=== PATIENT | male | born 1985 | race Caucasian/White ===

== ENCOUNTER 2020-04-09 10:17 | Emergency (ER) | payer MEDICAID, SELFPAY ==
[2020-04-09 10:17] VITALS: BP 127/85; PULSE 104; RESP 18; TEMP 36.3; O2SAT 100; BMI 23.7
--- NOTE | 2020-04-09 10:25 | ED.VIS.GEN ---
History of Present Illness Chief Complaint: Sore Throat Informant: Patient Narrative: 34-year-old male with no significant past medical history presents with concern for sore throat. States that he was diagnosed with strep approximately 1 day ago. Patient is concerned because he has continued pain in his throat as well as his ears. Denies any fever, chills, neck pain, vision change. Patient has been taking Aleve at home. Past Medical History - Allergies and Home Meds Allergies/Adverse Reactions: Allergies No Known Allergies Allergy (Verified 04/09/20 10:17) Primary Care Physician: NOT,DEFINED [Primary Care Provider] - Prior records reviewed: Yes Past Medical History: None Surgical History: no surgical history Lives: Alone Alcohol: None Drugs: None Review of Systems General: Denies: Chills, Fever, Sweats Eyes: Denies: Visual changes - bilaterally, Diplopia ENT: Reports: Sore throat. Denies: Rhinorrhea Cardiovascular: Denies: Chest pain, Palpitations Respiratory: Denies: Dyspnea, Cough, Dyspnea on exertion Gastrointestinal: Denies: Abdominal pain, Nausea, Vomiting, Diarrhea, Melena, Hematochezia Genitourinary: Denies: Dysuria, Hematuria, Frequency Musculoskeletal: Denies: Back pain, Extremity Pain Skin: Denies: Rash, Wounds Neurological: Denies: Headache, Weakness, Numbness Physical Exam Vital Signs/Narrative: Vital Signs Temp Pulse Resp BP Pulse Ox 04/09/20 10:17 97.4 F L 104 H 18 127/85 H 100 General: Well nourished, Well developed, No Acute Distress Head: Normocephalic, Atraumatic Eyes: Perrl, EOMI ENT: Moist mucous membranes, No rhinorrhea, - - Bilateral pharnygeal edma with exudate. Neck: Supple, Nontender Cardiovascular: Regular rate, Regular rhythm, No murmurs Respiratory: No distress, CTA bilaterally, Chest nontender Abdomen: Soft, Nontender, Nondistended, Normal bowel sounds Back: Nontender, Normal Inspection Extremities: Nontender, No edema Skin: Normal color, No rash Neurological: Alert, Oriented x3, Cranial nerves II-XII grossly intact, Normal Strength, Normal Sensation Psychological: Normal affect, Normal Mood Diagnostic/Tx/Re-eval - Medical Decision Making Appears well nontoxic. Tearful on exam. Equal bilateral edema. Phonating normally and tolerating secretions. Patient is currently on amoxicillin. Will be given intramuscular Toradol and asked to continue with Aleve. Asked to return for new or worsening symptoms. Discharged home in stable condition. Impression: Streptococcal pharyngitis ED Disposition - Plan for ED Patient: Disposition: Home or Assisted Living Instructions: ED Pharyngitis Strep Confirmed Referrals: Arash Winter DO [NON CLINICAL AFFILIATE] -
[2020-04-09] MEDS: Ketorolac 15 MG/ML Vial IM (10:31)
== END 2020-04-09 10:56 | disposition home or self-care (01) ==
LOC: ED 10:47
PROVIDERS: Emergency Provider Emergency Medicine
DX: J02.0 Streptococcal pharyngitis (principal)
CPT/HCPCS: 96372; 99283

== ENCOUNTER 2023-08-21 18:19 | Emergency (ER) | payer MEDICAID, SELFPAY ==
[2023-08-21 18:20] VITALS: BP 128/76; PULSE 99; RESP 20; TEMP 36.6; O2SAT 99; BMI 23.2
--- NOTE | 2023-08-21 18:43 | EX.ED.DYSGE1 ---
HPI <YADIRA Cifuentes - Last Filed: 08/21/23 20:22> History of Present Illness Chief Complaint: Constipation Narrative Narrative: Patient states he last used meth on August 15 now he is staying in a snf house and detoxing. States whenever he stops using it he gets constipated. He had a bowel movement on 08/15 and then today sat on the toilet for over an hour and only had a few small pellets come out. He feels like stool stuck in his rectum. He has abdominal bloating and discomfort. No vomiting. No history of obstruction or abdominal surgeries. PFSH <YADIRA Cifuentes - Last Filed: 08/21/23 20:22> [facility] Home Medications Amoxicillin 04/09/20 [History Last Taken Unknown] naproxen sodium 220 mg capsule 220 mg PO BID PRN PRN Pain 1-10 Or Fever 04/09/20 [History Last Taken Unknown] peg 3350-electrolytes 236 gram-22.74 gram-6.74 gram-5.86 gram solution (Golytely) 240 ml PO Q10M PRN #4,000 mL 08/21/23 [Rx Last Taken Unknown] Allergy/AdvReac Type Severity Reaction Status Date / Time No Known Allergies Allergy Verified 08/21/23 18:20 Social History Smoking Status: Current every day smoker tobacco type: cigarettes ROS <YADIRA Cifuentes - Last Filed: 08/21/23 20:22> ROS ED ROS Narrative Constitutional: Negative for fever, chills, malaise. GI: Positive for constipation. Negative for abdominal pain, nausea, vomiting. : Negative for dysuria. EXAM <YADIRA Cifuentes - Last Filed: 08/21/23 20:22> Physical Exam Narrative Exam Narrative: CONST: Patient sitting in no acute distress. EYES: Normal inspection. NECK: Normal inspection. RESP: No respiratory distress, CTAB. CVS: Regular rate and rhythm, no murmur, no gallop. ABD: Soft and nontender, no guarding or rebound, nondistended. Normal bowel sounds. CLIFFORD: Enlarged external hemorrhoids with no bleeding or thrombosis. Hard brown pellet like stool in the rectal vault. SKIN: Color normal, no rash, warm, dry, intact. EXTREMITIES: Normal appearance, no pedal edema. NEURO: Alert and answering questions appropriately. PSYCH: Normal affect. Const Vital Signs: 08/21/23 18:20 Temperature 97.8 F Temperature Source Temporal Pulse Rate 99 Respiratory Rate 20 H Blood Pressure 128/76 H Blood Pressure Mean 93 Pulse Ox 99 Oxygen Delivery Method Room Air <Dr. Joseluis Guillaume MD - Last Filed: 08/21/23 18:50> Physical Exam Const Vital Signs: 08/21/23 18:20 Temperature 97.8 F Temperature Source Temporal Pulse Rate 99 Respiratory Rate 20 H Blood Pressure 128/76 H Blood Pressure Mean 93 Pulse Ox 99 Oxygen Delivery Method Room Air MDM <YADIRA Cifuentes - Last Filed: 08/21/23 20:22> [facility] Narrative Medical decision making narrative: Patient has had 5 days of constipation. He passed a few hard pellets today but feels like stool stuck in the rectum. He appears well and nontoxic. Vital signs stable. Abdomen is soft, nontender, nondistended. There is hard stool in the rectal vault and external hemorrhoids from straining. Removed about 4 small of pellets of stool but there is still a lot left in the upper rectum that he cannot reach. KUB shows constipation with no obstructive pattern. I ordered a mineral oil enema and he had a small bowel movement. I prescribed GoLytely and recommended he start in the morning. I discussed starting a bowel regimen after using this and return precautions. He was discharged in stable condition. Differential: Constipation, obstruction I have personally performed a face to face assessment of the patient and have reviewed the TRACI Note. I performed a substantive portion of the visit including all aspects of the following. My pelayo findings include: History is 37-year-old male recently stopped smoking and is trying to stop using methamphetamines. When he is done this before in the past he gets constipated. Last normal bowel movement was about 5 days ago. Currently he is having very hard small bouts of stool. Denies any nausea or vomiting. Exam is [well-appearing 37-year-old male. Vital signs stable afebrile. HEENT exam unremarkable. Neck nontender no lymphadenopathy. Lungs clear to auscultation bilaterally. Heart regular rhythm rate about 95 no murmur. Chest wall and ribs nontender. Abdomen soft nondistended normal bowel sounds no peritoneal signs. Moving all 4 extremities. Neurovascular intact. Normal range of motion. Nontender no edema. Neurologically is awake alert with no focal motor deficits.] Medical Decision Making [37-year-old constipation. On rectal exam he had hard stool per my physician rehabilitation assistant. He is being given a mineral oil enema.] Other additions or changes: [None] Radiography Diagnostic Testing: Clinical Impression(s) from Imaging Studies KUB X-Ray 08/21/23 19:05 IMPRESSION: Stool in the ascending colon and rectal vault. This can suggest constipation. Electronically Signed: Dennys Grande MD at 19:45 EDT , <Dr. Joseluis Guillaume MD - Last Filed: 08/21/23 18:50> [facility] MDM Narrative Medical decision making narrative: I have personally performed a face to face assessment of the patient and have reviewed the TRACI Note. I performed a substantive portion of the visit including all aspects of the following. My pelayo findings include: History is 37-year-old male recently stopped smoking and is trying to stop using methamphetamines. When he is done this before in the past he gets constipated. Last normal bowel movement was about 5 days ago. Currently he is having very hard small bouts of stool. Denies any nausea or vomiting. Exam is [well-appearing 37-year-old male. Vital signs stable afebrile. HEENT exam unremarkable. Neck nontender no lymphadenopathy. Lungs clear to auscultation bilaterally. Heart regular rhythm rate about 95 no murmur. Chest wall and ribs nontender. Abdomen soft nondistended normal bowel sounds no peritoneal signs. Moving all 4 extremities. Neurovascular intact. Normal range of motion. Nontender no edema. Neurologically is awake alert with no focal motor deficits.] Medical Decision Making [37-year-old constipation. On rectal exam he had hard stool per my physician rehabilitation assistant. He is being given a soapsuds enema.] Other additions or changes: [None] History & Record Review Discussion w/independent historian: Patient Additional record(s) reviewed:: Prior inpatient record, Prior outpatient record, Prior ED visit and Prior labs Radiography Diagnostic Testing: Clinical Impression(s) from Imaging Studies KUB X-Ray 08/21/23 19:05 IMPRESSION: Stool in the ascending colon and rectal vault. This can suggest constipation. Electronically Signed: Dennys Grande MD at 19:45 EDT , Discharge Plan Triage Chief Complaint: Constipation ED Midlevel Provider: Jessica Fagan ED Provider: Joseluis Guillaume Dx/Rx/DC Orders Clinical Impression: Acute constipation, History of drug abuse Instructions: ED Constipation (Adult) Prescriptions: New peg 3350-electrolytes [Golytely] 236-22.74-6.74 -5.86 gram recon soln 240 ml PO Q10M PRN Qty: 4000 0RF Rx Instructions: until fecal effluent is clear No Action Amoxicillin naproxen sodium 220 MG capsule 220 mg PO BID PRN PRN (Reason: Pain 1-10 Or Fever) Primary Care Provider: Care Physician,No Primary Referrals: Care Physician,No Primary [Primary Care Provider] - Activity Restrictions/Additional Instructions: Stool softener as needed. Plenty of fluid, fiber and fruits and vegetables. Follow-up with your primary care physician as needed. Return if worse. Disposition Disposition: Home, Self Care
[2023-08-21] MEDS: Mineral Oil 1 BOTTLE ENEMA RC (18:51)
--- NOTE | 2023-08-21 19:05 | RAD_ITS ---
EXAM: XR ABDOMEN, 1 VIEW CLINICAL INDICATION: constipation TECHNIQUE: Frontal supine view of the abdomen/pelvis. COMPARISON: No relevant prior studies available. FINDINGS: LOWER THORAX: No acute pathology. GASTROINTESTINAL TRACT: Stool in the ascending colon and rectal vault. This can suggest constipation. Non-obstructive. No bowel or stomach distention. ORGANS: Unremarkable as visualized. No organomegaly. No abnormal calcifications. BONES/JOINTS: Spina bifida deformity at L5. SOFT TISSUES: No acute pathology. RAD/Abdomen Single View (Portable) IMPRESSION: Stool in the ascending colon and rectal vault. This can suggest constipation. Electronically Signed: Dennys Grande MD at 19:45 EDT ,
[2023-08-21 20:20] VITALS: BP 127/63; PULSE 81; RESP 16; TEMP 36.6; O2SAT 99
== END 2023-08-21 20:41 | disposition home or self-care (01) ==
LOC: ED 19:51
PROVIDERS: Emergency Provider Emergency Medicine; Visit Provider Emergency Medicine
DX: K59.00 Constipation, unspecified (principal); F17.210 Nicotine dependence, cigarettes, uncomplicated
CPT/HCPCS: 74018; 99282

== ENCOUNTER 2023-12-21 09:49 | Emergency (ER) | payer MEDICAID, SELFPAY ==
[2023-12-21 09:50] VITALS: BP 116/102; PULSE 73; RESP 22; TEMP 36.4; O2SAT 99; BMI 27.3
--- NOTE | 2023-12-21 09:57 | US_ITS ---
STUDY: ABDOMINAL ULTRASOUND - RIGHT UPPER QUADRANT REASON FOR VISIT: Male, 38 years old . Abdominal pain. TECHNIQUE: Ultrasound evaluation of the right upper quadrant was performed with real-time and static jones-scale imaging. TECHNICAL QUALITY: Adequate. COMPARISON: None. FINDINGS: Liver: The liver is mildly enlarged and measures 17.6 cm. There is increased echogenicity consistent with fatty infiltration. The bile ducts are within normal limits. There is hepatic color flow. The direction of portal flow is hepatopetal. There is no demonstrated mass lesion. Gallbladder: Normal distended gallbladder. The gallbladder wall measures 2.1 mm. There is a negative sonographic Stanford''s sign. There is no pericholecystic fluid. There are no gallstones. Common Bile Duct (C.B.D.): The common bile duct measures 5.9 mm. Pancreas: Normal size of the head, body and tail of the pancreas. There is increased echogenicity of the pancreas. There is no demonstrated pancreatic mass or cyst. Right Kidney: Normal size of the right kidney. The right kidney measures 12 cm x 5 cm x 5.4 cm. Normal renal cortex. The right cortex measures 2.3 cm. There is no demonstrated renal mass or cyst. There is no right hydronephrosis. US/Gallbladder IMPRESSION: Mild hepatomegaly and fatty infiltration of the liver. Electronically Signed: Kristopher Nichols MD at 11:54 EDT ,
--- NOTE | 2023-12-21 09:57 | ED.VIS.GI ---
HPI HPI - GI History of Present Illness Chief Complaint: Abd Pain Narrative Narrative: 38-year-old male in recovery presents with epigastric pain to right upper quadrant pain that began approximately 35 minutes ago. He had breakfast around 845, an hour and 15 minutes ago, then had sudden onset of pain. He became slightly nauseated but diaphoretic and broke out in a cold sweat. He is describing pain in the upper part of his abdomen. He denies any fevers or chills, no problems with bowel movements, no other symptoms. No previous abdominal surgeries. PFSH PFSH Home Medications ?Medication ?Instructions ?Recorded ?Last Taken ?Type Amoxicillin 04/09/20 Unknown History naproxen sodium 220 mg capsule 220 mg PO BID PRN PRN Pain 1-10 Or 04/09/20 Unknown History Fever peg 3350-electrolytes 236 240 ml PO Q10M PRN #4,000 mL 08/21/23 Unknown Rx gram-22.74 gram-6.74 gram-5.86 gram solution (Golytely) Allergy/AdvReac Type Severity Reaction Status Date / Time No Known Allergies Allergy Verified 12/21/23 09:51 Social History Smoking Status: Current every day smoker tobacco type: e-cigarettes ROS ROS ED ROS Narrative Constitutional: No fever, no chills. Positive diaphoresis HEENT: No sore throat. No neck pain. No loss of vision. No rhinorrhea. Cardiovascular: No chest pain. No palpitations. No pedal edema. Respiratory: No cough, no shortness of breath. Abdominal: Epigastric to right upper quadrant abdominal pain. Positive nausea. No vomiting. Genitourinary: No dysuria. No hematuria. Musculoskeletal: No myalgias. No arthralgias. Neurologic: No headaches. No dizziness. No lightheadedness. Skin: No rash. No change in color. Psychiatric: No depression. No anxiety. EXAM Physical Exam Narrative Exam Narrative: Afebrile. Vital signs noted. HEENT: Normocephalic. Atraumatic. PERRL, EOMI. Neck soft and supple. No point tenderness or step off. Cardiovascular: Regular rate and rhythm. No murmurs, rubs, or gallops appreciated. Respiratory: Intermittent tachypnea. Lungs clear to auscultation bilaterally. Gastrointestinal: Abdomen soft, positive tenderness to palpation right upper quadrant with normoactive bowel sounds. Positive Stanfrod sign on examination. Neurological: Awake. Alert. Nonfocal, nonlateralizing. Skin: No rash. Normal color. No pallor. Musculoskeletal: No pedal edema. Full range of motion extremities. Const Vital Signs: 12/21/23 09:50 12/21/23 11:49 12/21/23 13:00 Temperature 97.5 F L 98.1 F Temperature Source Temporal Oral Pulse Rate 73 84 75 Respiratory Rate 22 H 18 16 Blood Pressure 116/102 H 112/99 H 138/77 H Blood Pressure Mean 106 103 97 Pulse Ox 99 95 98 Oxygen Delivery Method Room Air Room Air Room Air MDM MDM MDM Narrative Medical decision making narrative: Differential diagnosis includes but not limited to cholecystitis versus biliary colic versus choledocholithiasis versus gallstone pancreatitis. Comprehensive workup was pursued. Patient will be given ketorolac at his request as he states he is unable to receive opiate medication secondary to addiction and his recovery. Will obtain a CBC, CMP, and lipase. He will be bolused IV fluids and ultrasound of the right upper quadrant/gallbladder will be obtained. I reviewed his laboratory work and he has normal white count of 6.6, hemoglobin normal at 15.3, platelet count normal at 323. Chloride is slightly elevated at 108 which I think is nonspecific BUN of 9, creatinine of 1.01, AST is elevated at 70 with ALT of 180 but normal alk phos of 71. Lipase normal at 22. Urinalysis is negative for infection. Reexamination after Toradol shows mild improvement. I reviewed the radiology report of the gallbladder ultrasound which shows no evidence of gallstones or sludge, common bile duct is not dilated and is within normal limits. No pericholecystic fluid so I do not think that he has any gallbladder pathology such as cholecystitis. Upon repeat examination his abdomen remains soft but his right upper quadrant pain might of moved a little bit lower. With a concern for appendicitis, CT of the abdomen pelvis was obtained. I reviewed the radiology report which shows no acute process, no colitis, no acute appendicitis. At this point in time, I feel he be discharged to follow-up with a primary care provider. He can take [id number]-[id number] medications and once again he does not want narcotic pain medications, but I do not feel they are indicated. He was also referred to general surgery should he have postprandial colic pain of the right upper quadrant. Return instructions to the emergency department were reviewed. Disposition is discharged home in stable condition. History & Record Review Discussion w/independent historian: Patient Lab Data Attestation: I reviewed the patient's lab results. Labs: Laboratory Results - last 24 hr 12/21/23 12/21/23 10:10 11:08 WBC 6.6 RBC 5.22 Hgb 15.3 Hct 44.1 MCV 84.5 MCH 29.3 MCHC 34.7 RDW Std Deviation 36.6 RDW Coeff of Lis 12.1 Plt Count 323 MPV 8.7 Immature Gran % (Auto) 0.500 Neut % (Auto) 54.4 Lymph % (Auto) 33.1 Blaine % (Auto) 8.5 Eos % (Auto) 2.7 Baso % (Auto) 0.8 Absolute Neuts (auto) 3.6 Absolute Lymphs (auto) 2.17 Nucleated RBC % 0 Sodium 138 Potassium 3.9 Chloride 108 H Carbon Dioxide 21.0 Anion Gap 9 BUN 9 Creatinine 1.01 Estim Creat Clear Calc 118.52 Est GFR (MDRD) Af Amer 106 Est GFR (MDRD) Non-Af 88 BUN/Creatinine Ratio 8.9 L Glucose 129 H Calcium 9.0 Total Bilirubin 0.50 AST 70 H ALT 180 H Alkaline Phosphatase 71 Total Protein 7.4 Albumin 3.6 Globulin 3.8 Albumin/Globulin Ratio 0.9 Lipase 22 Urine Color Yellow Urine Clarity Clear Urine pH 7.0 Ur Specific [place] 1.010 Urine Protein Negative Urine Glucose (UA) Normal Urine Ketones Negative Urine Occult Blood Negative Urine Nitrite Negative Urine Bilirubin Negative Urine Urobilinogen Normal Ur Leukocyte Esterase 25 H Urine RBC 0 SEEN Urine WBC 0-5 SEEN Ur Squamous Epith Cells 0 SEEN Urine Bacteria 0 SEEN Urine Mucus 0 SEEN Radiography Diagnostic Testing: Clinical Impression(s) from Imaging Studies Gallbladder Ultrasound 12/21/23 09:57 IMPRESSION: Mild hepatomegaly and fatty infiltration of the liver. Electronically Signed: Kristopher Nichols MD at 11:54 EDT , Abdomen/Pelvis CT 12/21/23 12:12 IMPRESSION: Mild hepatomegaly and fatty infiltration of the liver. Mild degree of bladder wall thickening although the bladder is not completely distended. Electronically Signed: Kristopher Nichols MD at 12:41 EDT , Discharge Plan Triage Chief Complaint: Abd Pain ED Provider: Nino Morales Dx/Rx/DC Orders Clinical Impression: Abdominal pain, RUQ, Nonspecific abdominal pain Instructions: ED Abdominal Pain Unkn Cause Male... Prescriptions: No Action Amoxicillin naproxen sodium 220 MG capsule 220 mg PO BID PRN PRN (Reason: Pain 1-10 Or Fever) peg 3350-electrolytes [Golytely] 236-22.74-6.74 -5.86 gram recon soln 240 ml PO Q10M PRN Qty: 4000 0RF Rx Instructions: until fecal effluent is clear Primary Care Provider: Care Physician,No Primary Referrals: Anil Rogers MD [Med Staff - Active Staff] - As Needed Zach Chisholm MD [Med Staff - Active Staff] - 3-5 Days if not improving Care Physician,No Primary [Primary Care Provider] - Activity Restrictions/Additional Instructions: Take [id number]-juruftn medications like Tylenol or ibuprofen as needed for pain. Return with fever, chills, new or worsening symptoms. You may need to follow-up with general surgery if your right upper quadrant pain persists, especially after eating. Print Language: Hungarian Disposition Disposition: Home, Self Care
[2023-12-21] MEDS: Ketorolac 30 MG/ML Syringe IV (10:15)
[2023-12-21] MEDS: 0.9% Normal Saline (1000mL) 1,000 ML 999 ML IV (10:15)
[2023-12-21 10:18] LABS: Absolute Lymphocyte Count 2.17 X10^3/uL (0.83-4.51); Absolute Neutrophil Count 3.6 X10^3/uL (2.0-7.7); Basophil# 0.05 X10^3/uL; Basophil% 0.8 % (0-1); Eosinophil# 0.18 X10^3/uL; Eosinophils% 2.7 % (0-5); Hematocrit 44.1 % (40-54); Hemoglobin 15.3 g/dL (13.0-16.5); Lymphocyte # 2.17 X10^3/ul (0.83-4.51); Lymphocyte % 33.1 % (19-41); Mean Corp Hgb Conc 34.7 g/dL (32-36); Mean Corpuscular Hgb 29.3 pg (27.0-32.0); Mean Corpuscular Volume 84.5 fL (80-94); Mean Platelet Vol. 8.7 fl (6.2-12.0); Monocyte# 0.56 X10^3/uL; Monocyte% 8.5 % (0-10); NRBC Flagged by Analyzer 0 % (0-5); Neutrophil # 3.57 X10^3/uL (2.7-7.7); Neutrophil % 54.4 % (47-70); Platelet Count 323 K/mm3 (150-450); RBC Distribution Width CV 12.1 % (11.6-14.6); RBC Distribution Width SD 36.6 fl (35.1-43.9); Red Blood Count 5.22 M/mm3 (4.6-6.2); White Blood Count 6.6 K/mm3 (4.4-11.0)
[2023-12-21 10:35] LABS: ALB/GLOB Ratio 0.9 RATIO (0.9-2.4); AST(SGOT) 70 U/L (15-37); Alanine Aminotransfer ALT/SGPT 180 U/L (16-61); Albumin, Serum 3.6 g/dL (3.2-5.0); Alkaline Phosphatase 71 U/L (45-117); Anion Gap 9 (5-15); BUN 9 mg/dL (7-18); BUN/Creat Ratio 8.9 RATIO (10-20); Chloride 108 mmol/L (98-107); Creatinine, Serum 1.01 mg/dL (0.70-1.30); EST Glomerular Filtration Rate 88 mL/min (>60); Est Glom Filt Rate - Afr Amer 106 mL/min (>60); Estimated Creatinine Clearance 118.52 ml/min; Globulin 3.8 g/dL (2.2-4.2); Glucose 129 mg/dL (74-106); Lipase 22 U/L (13-75); Potassium 3.9 mmol/L (3.5-5.1); Protein, Total 7.4 g/dL (6.4-8.2); Sodium Level 138 mmol/L (136-145)
[2023-12-21 11:11] LABS: Bacteria 0 SEEN /hpf (None Seen); Mucous, Urine 0 SEEN /hpf (<or=2+); Red Blood Cells-Urine 0 SEEN /hpf (0-5); Squamous Epithelial Cells - UA 0 SEEN /hpf (0-5)
[2023-12-21 11:26] LABS: Color, Urine Yellow (Yellow); Glucose, Dipstick Normal (Normal); Ketone-Dipstick Negative (Negative); Leukocyte Esterase-Dipstick 25 /ul (Negative); Nitrite-Dipstick Negative (Negative); Occult Blood-Urine Negative /ul (Negative); Protein-Dipstick Negative (Negative); Urine Bilirubin Dipstick Negative (Negative); Urine Clarity Clear (Clear); Urine Urobilinogen Normal (Normal)
[2023-12-21 11:39] LABS: White Blood Cells 0-5 SEEN /hpf (0-5)
[2023-12-21 11:49] VITALS: BP 112/99; PULSE 84; RESP 18; O2SAT 95
--- NOTE | 2023-12-21 12:12 | CT_ITS ---
STUDY: CT ABDOMEN AND PELVIS WITH CONTRAST REASON FOR EXAM: Male, 38 years old. Abdominal Pain RADIATION DOSAGE (If Supplied By Facility): CTDIvol = ( 17.64 ) mGy, DLP = ( 1096.34 ) mGycm TECHNIQUE: Transaxial images were obtained from the dome of the diaphragm to the symphysis pubis without oral contrast. IV 100mL Isovue-[id number] was administered. Sagittal and coronal images were reconstructed. Individualized dose optimization techniques were used for this CT. COMPARISON: Comparison is made with prior sonogram of the right upper quadrant done earlier today. FINDINGS: Mild increased markings at the lung bases suggestive of dependent bibasilar atelectasis. The visualized portions of the heart are within normal limits. There is decreased attenuation of the liver consistent with steatosis. Mild hepatomegaly. Normal gallbladder and extrahepatic biliary system. Normal spleen. Normal pancreas. Normal bilateral adrenal glands. Normal right kidney. Normal left kidney. There is a small hiatal hernia. Normal small intestine. Normal colon. The appendix is visualized and appears normal. Normal abdominal aorta. Normal inferior vena cava. Normal retroperitoneum. Minimal thickening of the urinary bladder wall although the urinary bladder is not completely distended. Small bilateral inguinal hernias containing fat. Normal osseous structures. CT/Abdomen/Pelvis W IV Cont ONLY IMPRESSION: Mild hepatomegaly and fatty infiltration of the liver. Mild degree of bladder wall thickening although the bladder is not completely distended. Electronically Signed: Kristopher Nichols MD at 12:41 EDT ,
[2023-12-21 13:00] VITALS: BP 138/77; PULSE 75; RESP 16; TEMP 36.7; O2SAT 98
[2023-12-21 13:50] VITALS: BP 129/70; PULSE 73; RESP 15; TEMP 36.3; O2SAT 98
== END 2023-12-21 13:51 | disposition home or self-care (01) ==
PROVIDERS: Emergency Provider Emergency Medicine; Visit Provider Emergency Medicine
DX: R10.11 Right upper quadrant pain (principal); F17.290 Nicotine dependence, other tobacco product, uncomplicated
CPT/HCPCS: 74177; 76705; 80053; 81001; 83690; 85025; 96361; 96374; 99283; J7030; Q9967; A4216